=== PATIENT | female | born 1965 | race Hispanic/Latino ===

== ENCOUNTER → 2021-12-17 | Outpatient (CLI) | payer OTHER | END | disposition home or self-care (01) | LOC: RAH 10:53 | PROVIDERS: ATTEND Nurse Practitioner | DX: S83.8X2A Sprain of other specified parts of left knee, initial encounter (principal); X58.XXXA Exposure to other specified factors, initial encounter; Y93.82 Activity, spectator at an event; Y92.89 Other specified places as the place of occurrence of the external cause; Y99.8 Other external cause status; M17.12 Unilateral primary osteoarthritis, left knee; M25.462 Effusion, left knee | CPT/HCPCS: 73721 ==

== ENCOUNTER 2022-03-22 08:00 | Inpatient (IN) | payer OTHER ==
[~2022-03-22] VITALS: Ht 167.6 cm; Wt 118.5 kg
[2022-03-22 14:16] LABS: ALBUMIN 3.8 g/dL (3.5-5.0); CREATININE 0.7 mg/dL (0.5-1.5); POTASSIUM 4.3 mmol/L (3.5-5.1)
[2022-03-22 14:35] LABS: APPEARANCE,URINE CLEAR (CLEAR); BILIRUBIN,URINE NEGATIVE (NEGATIVE); COLOR,URINE YELLOW (YELLOW); GLUCOSE, URINE (UA) NEGATIVE (NEGATIVE); KETONES,URINE 5 mg/dL (NEGATIVE); LEUKOCYTE ESTERASE ,URINE NEGATIVE Leu/uL (NEGATIVE); NITRATE,URINE NEGATIVE (NEGATIVE); OCCULT BLOOD,URINE SMALL (NEGATIVE); PH,URINE 5.5 (5.0-8.0); PROTEIN,URINE NEGATIVE (NEGATIVE); UROBILINOGEN,URINE 0.2 mg/dL (0.2-1.0)
[2022-03-22 14:51] LABS: BACTERIA,URINE RARE /HPF (None Seen); MUCUS,URINE RARE LPF (None Seen); SQUAMOUS EPITHELIAL CELL,UR MOD /HPF (0-2)
[2022-03-23 08:51] VITALS: BP 192/87
[2022-03-23] MEDS ORDERED: ACET-2079 PO (09:13)
[2022-03-23] MEDS ORDERED: MELO-108 PO (09:13)
[2022-03-23] MEDS ORDERED: FENTANYL CITRATE PF 50 MCG/1 ML 5ML AMP IV ONE (17:07)
[2022-03-24] VITALS (25 sets, daily range): BP systolic 103–169; BP diastolic 44–81
[2022-03-24] MEDS: CEFAZOLIN SODIUM 1 GM VIAL IVPB SCH ×2 (05:00→09:30)
[2022-03-24] MEDS ORDERED: TRANEXAMIC ACID 1000MG/10ML ONE ×2 (05:27→05:29)
[2022-03-24] MEDS ORDERED: KETOROLAC 30MG VIAL (30MG/ML) ONE ×3 (05:27→12:50)
[2022-03-24] MEDS ORDERED: ROPIVACAINE 0.5% 5MG/ML 30ML IJ ONE ×3 (05:27→09:48)
[2022-03-24] MEDS ORDERED: LACTATED RINGERS 1000ML 1,000 ML IV ONE (06:47)
[2022-03-24] MEDS ORDERED: FENTANYL CITRATE PF 50 MCG/1 ML 5ML AMP IV ONE ×2 (07:09→08:51)
[2022-03-24] MEDS ORDERED: HYDRALAZINE 20MG/ML VIAL ONE (08:33)
[2022-03-24] MEDS ORDERED: LIDOCAINE PF 100MG/5ML (2%) SYRINGE 5ML ONE (08:34)
[2022-03-24] MEDS ORDERED: SUCCINYLCHOLINE CHLORIDE 20 MG/ML 10 ML VIAL ONE (08:34)
[2022-03-24] MEDS ORDERED: ONDANSETRON 4MG INJ ONE (08:34)
[2022-03-24] MEDS ORDERED: DEXAMETHASONE SOD PHOSPHATE 10MG/ML 1ML VIAL ONE (08:34)
[2022-03-24] MEDS ORDERED: GLYCOPYRROLATE 1 MG/5 ML SYRINGE ONE (08:34)
[2022-03-24] MEDS ORDERED: PROPOFOL 10 MG/ML 20ML VIAL IV ONE ×2 (08:34→09:37)
[2022-03-24] MEDS ORDERED: MIDAZOLAM HCL 1 MG/ML 2ML VIAL ONE (08:35)
[2022-03-24] MEDS ORDERED: ROCURONIUM 10MG/1ML SYR 10 MG/ML ML ONE (08:35)
[2022-03-24] MEDS ORDERED: NEOSTIGMINE 5MG/5ML SYR IV ONE (08:35)
[2022-03-24] MEDS ORDERED: MEPERIDINE-PF 25 MG/ML SYG ONE ×2 (10:37→12:50)
[2022-03-24] MEDS: KETOROLAC 15MG/ML VIAL (15MG/ML) IV SCH ×2 (12:00→15:19)
[2022-03-24] MEDS ORDERED: CALCIUM CARB 500MG PO PRN (12:00)
[2022-03-24] MEDS ORDERED: POTASSIUM CHLORIDE 20MEQ/100ML 100 ML IV PRN (12:00)
[2022-03-24] MEDS ORDERED: DiphenhydrAMINE HCL 50 MG/ML VIAL IVP PRN (12:00)
[2022-03-24] MEDS ORDERED: CYCLOBENZAPRINE HCL 10 MG TABLET PO PRN (12:00)
[2022-03-24] MEDS ORDERED: FERROUS FUMARATE 324 MG TABLET PO PRN (12:00)
[2022-03-24] MEDS ORDERED: TRAMADOL HCL 50 MG TABLET PO PRN (12:00)
[2022-03-24] MEDS ORDERED: LIDOCAINE HCL-MPF 1% 2ML VIAL IV PRN (12:00)
[2022-03-24] MEDS ORDERED: POTASSIUM CHLORIDE 10% ELIXIR 20 MEQ/15 ML UDCUP PO PRN (12:00)
[2022-03-24] MEDS ORDERED: KCL 20 MEQ ERTAB PO PRN (12:00)
[2022-03-24] MEDS: ONDANSETRON 4MG INJ IVP PRN (12:54)
[2022-03-24] MEDS ORDERED: CEFAZOLIN SODIUM 2 GM VIAL ONE (15:14)
[2022-03-24] MEDS: GABAPENTIN 100 MG CAPSULE PO SCH ×2 (15:18→19:36)
[2022-03-24] MEDS: 0.9%NACL 1000ML 1,000 ML IV SCH ×2 (15:19→21:16)
[2022-03-24] MEDS: CEFAZOLIN SODIUM 1 GM VIAL IVP SCH (17:14)
[2022-03-25] MEDS: CEFAZOLIN SODIUM 1 GM VIAL IVP SCH (00:10)
[2022-03-25 00:19] VITALS: BP 131/56
[2022-03-25] MEDS: HYDROCODONE/ACETAMINOPHEN 5/325 MG TAB PO PRN ×4 (00:26→21:54)
[2022-03-25] MEDS: KETOROLAC 15MG/ML VIAL (15MG/ML) IV SCH (03:13)
[2022-03-25 04:18] LABS: HEMATOCRIT 35.9 % (36-48); MEAN CORPUSCULAR HEMOGLOBIN 29.2 pg (27.0-33.0); MEAN CORPUSCULAR HGB CONC 32.9 g/dL (32.0-36.0); MEAN CORPUSCULAR VOLUME 88.9 fL (79-99); RED BLOOD CELL COUNT(AUTO) 4.04 MIL/uL (4.00-5.50); WHITE BLOOD COUNT (AUTO) 12.5 K/uL (4.8-10.8)
[2022-03-25 04:45] LABS: CREATININE 0.7 mg/dL (0.5-1.5); POTASSIUM 4.3 mmol/L (3.5-5.1)
[2022-03-25 04:58] VITALS: BP 126/60
[2022-03-25 07:30] VITALS: BP 130/70
[2022-03-25] MEDS: 0.9%NACL 1000ML 1,000 ML IV SCH (08:00)
[2022-03-25] MEDS: GABAPENTIN 100 MG CAPSULE PO SCH ×3 (08:10→21:53)
[2022-03-25] MEDS: ONDANSETRON 4MG INJ IVP PRN (08:10)
[2022-03-25] MEDS: POLYETHYLENE GLYCOL 3350 17 GM POWD.PACK PO SCH (09:12)
[2022-03-25] MEDS: ASPIRIN 325MG TAB PO SCH (09:12)
[2022-03-25 11:00] VITALS: BP 121/56
[2022-03-25 16:00] VITALS: BP 111/63
[2022-03-25 20:00] VITALS: BP 139/66
[2022-03-26] VITALS: BP 132/59
[2022-03-26] MEDS: KETOROLAC 15MG/ML VIAL (15MG/ML) IV PRN ×2 (03:36→09:40)
[2022-03-26 04:00] VITALS: BP 143/69
[2022-03-26 07:30] VITALS: BP 173/79
[2022-03-26] MEDS: ASPIRIN 325MG TAB PO SCH (09:40)
[2022-03-26] MEDS: POLYETHYLENE GLYCOL 3350 17 GM POWD.PACK PO SCH (09:41)
[2022-03-26] MEDS: HYDROCODONE/ACETAMINOPHEN 5/325 MG TAB PO PRN (09:41)
[2022-03-26] MEDS: GABAPENTIN 100 MG CAPSULE PO SCH ×2 (09:41→14:50)
[2022-03-26 10:40] VITALS: BP 161/74
[2022-03-26] MEDS: BUTALB/ACETAMINOPHEN/CAFFEINE 1 EACH TABLET PO PRN ×2 (11:28→16:03)
[2022-03-26 16:10] VITALS: BP 151/79
[2022-03-26] MEDS ORDERED: GABA100C PO (16:56)
[2022-03-26] MEDS ORDERED: ASPI-1026 PO (16:56)
[2022-03-26] MEDS ORDERED: CYCL-309 PO (16:56)
[2022-03-26] MEDS ORDERED: DOCU-116 PO (16:56)
[2022-03-26] MEDS ORDERED: HYDR-4060 PO (16:56)
[2022-03-27] MEDS ORDERED: BISACODYL 10 MG SUPP.RECT RC PRN (12:00)
== END 2022-03-26 19:02 | disposition home health service (06) | DRG 470 ==
LOC: DAHIP 03-24 05:46 → EDSTATUS 03-24 08:00 → 4CH 03-24 14:01
PROVIDERS: ADMIT Student in an Organized Health Care Education/Training Program; ATTEND Student in an Organized Health Care Education/Training Program
PROC: 0SRD0J9 Replacement of Left Knee Joint with Synthetic Substitute, Cemented, Open Approach (ICD-10-PCS; principal; 2022-03-24 09:14)
DX: M17.12 Unilateral primary osteoarthritis, left knee (principal); D64.9 Anemia, unspecified; Z20.822 Contact with and (suspected) exposure to COVID-19
CPT/HCPCS: 36415; 73560; 80048; 81001; 82040; 84134; 85027; 86140; 87088; 87426; 87641; 97039; G0378; J0330; J0360; J0690; J1100; J1885; J2001; J2175; J2250; J2405; J2704; J2710; J2795; J3010; J3490; J7120